=== PATIENT | male | born 1975 | race Caucasian/White ===

== ENCOUNTER → 2017-07-26 | Outpatient (CLI) | payer OTHER ==
--- NOTE | 2017-07-26 07:53 | US ---
EXAMINATION TYPE: US abdomen complete DATE OF EXAM: 07/26/2017 COMPARISON: NONE CLINICAL HISTORY: R10.11 ABD PAIN. RUQ dull pain per patient; taking medication for GERD and HTN EXAM MEASUREMENTS: Liver Length: 17.7 cm Gallbladder Wall: 0.2 cm CBD: 0.3 cm Spleen: 10.8 cm Right Kidney: 10.7 x 6.2 x 3.9 cm Left Kidney: 11.6 x 6.7 x 5.6 cm Pancreas: hyperechoic and tail obscured by bowel gas Liver: fatty as is hyperechoic to right renal cortex and liver attenuated posteriorly Gallbladder: wnl Evidence for sonographic Sanchez's sign: No CBD: wnl Spleen: wnl Right Kidney: wnl Left Kidney: wnl Upper IVC: wnl Abd Aorta: size is wnl with limited visualization due to overlying bowel gas IMPRESSION: 1. Hepatic steatosis.
== END ==
LOC: RADUSWWP 06:53
PROVIDERS: ATTEND Surgery
DX: K76.0 Fatty (change of) liver, not elsewhere classified (principal)
CPT/HCPCS: 76700

== ENCOUNTER → 2023-12-14 | Outpatient (CLI) | payer OTHER ==
--- NOTE | 2023-12-14 10:10 | MR ---
EXAMINATION TYPE: MR angio head wo con DATE OF EXAM: 12/14/2023 COMPARISON: None HISTORY: 48-year-old male Z82.49 FAMILY HX OF ISCHEM HEART DIS AND OTH DIS O, Headaches, family hx of ischemic heart disease. TECHNIQUE: High-resolution 3-D [id number] imaging of the three affiliated of [place]. Rotational 3-D reconst ructions generated on a dedicated independent workstation. FINDINGS: Codominant vertebral arteries. Both vertebral and basilar artery as well as the remainder of the post erior circulation are patent. The internal carotid arteries are patent as is the remainder of the anterior circulation. No signific ant narrowing is seen. There is a 3 mm focal protrusion from the posterior aspect of the right carotid terminus only seen on the axial raw data series 301 image 92 and not as well appreciated on the rotational reconstructions (series 304 image 11). No additional aneurysmal change is seen. Normal anatomic variation persistent CSP. IMPRESSION: 1. 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 2. Otherwise, unremarkable MRA three affiliated of [place].
== END | disposition home or self-care (01) ==
LOC: RADMRIMAIN 06:16
PROVIDERS: ATTEND Family Medicine
DX: Z82.49 Family history of ischemic heart disease and other diseases of the circulatory system (principal)
CPT/HCPCS: 70544

== ENCOUNTER 2024-03-30 09:41 | Day surgery (SDC) | payer OTHER ==
[2024-03-30] MEDS: LACTATED RINGERS 1,000 ML BAG IV STA (10:39)
[2024-03-30] MEDS: IV FLUID CONTINUATION 1,000 ML IV ONE (10:40)
[2024-03-30 10:44] VITALS: TEMP 97
[2024-03-30] MEDS ORDERED: PROPOFOL 10 MG/ML 20 ML VIAL IV ONE (10:50)
[2024-03-30] MEDS ORDERED: LIDOCAINE 1% INJ 10MG/ML (20 ML MDV) ONE (10:50)
--- NOTE | 2024-03-30 11:13 | P.PCN ---
Date of Procedure: 03/30/24 Procedure(s) Performed: BRIEF HISTORY: Patient is a 48-year-old pleasant white male scheduled for an elective colonoscopy as a part of screening for colon cancer and family history of colon cancer. He does have family history of colon cancer and to have his first cousins who were diagnosed with colon cancer at age 40 and 50 respectively. PROCEDURE PERFORMED: Colonoscopy with cold snare polypectomy PREOPERATIVE DIAGNOSIS: Screening for colon cancer/family history of colon cancer. IV sedation per Anesthesia. PROCEDURE: After informed consent was obtained, the patient, was brought into the endoscopy unit. IV sedation was administered by Anesthesia under continuous monitoring. Digital rectal examination was normal. Initially the Olympus CF-160 flexible video colonoscope was then inserted in the rectum, gradually advanced into the cecum without any difficulty. Careful examination was performed as the scope was gradually being withdrawn. Ileocecal valve and the appendiceal orifice were visualized and appeared normal. Prep was excellent. Mucosa of the cecum, ascending colon, adenopathy in the transverse colon there was a 5 mm polyp that was removed by cold snare polypectomy. Rest of the transverse colon, descending colon, sigmoid colon, and rectum appeared normal. Retroflexion was performed in the rectum and no lesions were seen. The patient tolerated the procedure well. IMPRESSION: 5 mm transverse colon polyp status post cold snare polypectomy Rest of the colon appeared normal RECOMMENDATIONS: Findings of this examination were discussed with the patient as well as his family. He was advised to follow-up the biopsy results and recommended repeat colonoscopy in 5 years because of the family history of colon cancer.
[2024-03-30 11:33] VITALS: BP 134/84; PULSE 68; RESP 16
== END 2024-03-30 11:55 | disposition home or self-care (01) ==
LOC: ORWHC2ENDO 09:41
PROVIDERS: ATTEND Internal Medicine Gastroenterology
DX: Z12.11 Encounter for screening for malignant neoplasm of colon (principal); D12.3 Benign neoplasm of transverse colon; I10 Essential (primary) hypertension; E78.5 Hyperlipidemia, unspecified; G47.33 Obstructive sleep apnea (adult) (pediatric); G43.909 Migraine, unspecified, not intractable, without status migrainosus; K21.9 Gastro-esophageal reflux disease without esophagitis; K76.0 Fatty (change of) liver, not elsewhere classified; F17.210 Nicotine dependence, cigarettes, uncomplicated; Z80.0 Family history of malignant neoplasm of digestive organs; Z79.899 Other long term (current) drug therapy
CPT/HCPCS: 45385; J2001; J2704; 88305